=== PATIENT | male | born 1985 | race African-American/Black ===

== ENCOUNTER 2016-10-19 20:11 | Emergency (ER) | payer SELFPAY ==
[~2016-10-19] VITALS: Ht 167.6 cm; Wt 79.1 kg
[2016-10-19 20:13] VITALS: BP 120/67; PULSE 92; TEMP 98.1
== END 2016-10-19 22:02 | disposition home or self-care (01) ==
LOC: COL.ER 20:11
DX: S60.441A External constriction of left index finger, initial encounter (principal); W49.04XA Ring or other jewelry causing external constriction, initial encounter; F17.210 Nicotine dependence, cigarettes, uncomplicated

== ENCOUNTER 2017-01-15 10:53 | Emergency (ER) | payer SELFPAY ==
[~2017-01-15] VITALS: Ht 167.6 cm; Wt 78.6 kg
[2017-01-15 10:58] VITALS: BP 122/64; TEMP 98.9
[2017-01-15] MEDS ORDERED: ADVIL200 MG PO (11:19)
[2017-01-15 12:16] VITALS: PULSE 88
== END 2017-01-15 12:17 | disposition home or self-care (01) ==
LOC: COL.ER 10:53
DX: S29.011A Strain of muscle and tendon of front wall of thorax, initial encounter (principal); F12.90 Cannabis use, unspecified, uncomplicated; F17.210 Nicotine dependence, cigarettes, uncomplicated; X50.0XXA Overexertion from strenuous movement or load, initial encounter
CPT/HCPCS: J2360

== ENCOUNTER 2017-04-01 11:16 | Emergency (ER) | payer SELFPAY ==
[~2017-04-01] VITALS: Ht 167.6 cm; Wt 72.7 kg
[~2017-04-01 11:16] MED LIST: ADVIL200 MG PO
[2017-04-01 11:17] VITALS: BP 140/87; PULSE 102; TEMP 98.1
[2017-04-01] MEDS ORDERED: WELLBUTRIN 75MG75 MG PO (11:59)
[2017-04-04] MEDS ORDERED: AMOXICILLIN 50500 MG PO (17:33)
== END 2017-04-01 13:08 | disposition home or self-care (01) ==
LOC: COL.ER 11:16
DX: J02.9 Acute pharyngitis, unspecified (principal); H92.02 Otalgia, left ear; F17.210 Nicotine dependence, cigarettes, uncomplicated

== ENCOUNTER 2017-04-18 12:58 | Emergency (ER) | payer SELFPAY ==
[~2017-04-18] VITALS: Ht 167.6 cm; Wt 68.2 kg
[~2017-04-18 12:58] MED LIST changes: +AMOXICILLIN 50500 MG PO; +WELLBUTRIN 75MG75 MG PO
[2017-04-18 13:02] VITALS: BP 119/92; TEMP 98.6
[2017-04-18 13:31] VITALS: PULSE 94
== END 2017-04-18 13:33 | disposition home or self-care (01) ==
LOC: COL.ER 12:58
DX: M79.1 Myalgia (principal); X50.3XXA Overexertion from repetitive movements, initial encounter

== ENCOUNTER 2017-05-07 11:57 | Emergency (ER) | payer SELFPAY ==
[~2017-05-07] VITALS: Ht 167.6 cm; Wt 68.2 kg
[2017-05-07 12:00] VITALS: BP 113/79; TEMP 97.7
[2017-05-07] MEDS ORDERED: MOTRIN 800800 MG/TAB PO (12:28)
[2017-05-07 13:07] VITALS: PULSE 81
== END 2017-05-07 13:08 | disposition home or self-care (01) ==
LOC: COL.ER 11:57
DX: S90.122A Contusion of left lesser toe(s) without damage to nail, initial encounter (principal); W22.03XA Walked into furniture, initial encounter

== ENCOUNTER 2017-08-16 18:44 | Emergency (ER) | payer SELFPAY ==
[~2017-08-16] VITALS: Ht 167.6 cm; Wt 70.5 kg
[~2017-08-16 18:44] MED LIST changes: +MOTRIN 800800 MG/TAB PO
[2017-08-16 18:46] VITALS: BP 136/68; TEMP 97.1
[2017-08-16] MEDS ORDERED: FLEXERIL 1010 MG/TAB PO (22:15)
[2017-08-16 22:28] VITALS: PULSE 87
== END 2017-08-16 22:30 | disposition home or self-care (01) ==
LOC: COL.ER 18:44
DX: S16.1XXA Strain of muscle, fascia and tendon at neck level, initial encounter (principal); S29.012A Strain of muscle and tendon of back wall of thorax, initial encounter; V49.50XA Passenger injured in collision with unspecified motor vehicles in traffic accident, initial encounter
CPT/HCPCS: J1885

== ENCOUNTER 2017-09-10 18:28 | Emergency (ER) | payer SELFPAY ==
[~2017-09-10] VITALS: Ht 167.6 cm; Wt 70.5 kg
[~2017-09-10 18:28] MED LIST changes: +FLEXERIL 1010 MG/TAB PO
[2017-09-10 18:35] VITALS: BP 180/106; PULSE 95; TEMP 98.7
[2017-09-10] MEDS ORDERED: LEVAQUIN 5500 MG/TA1 PO (20:11)
== END 2017-09-10 20:41 | disposition home or self-care (01) ==
LOC: COL.ER 18:28
DX: S91.331A Puncture wound without foreign body, right foot, initial encounter (principal); W22.8XXA Striking against or struck by other objects, initial encounter; Y92.009 Unspecified place in unspecified non-institutional (private) residence as the place of occurrence of the external cause
CPT/HCPCS: J1885

== ENCOUNTER 2017-11-29 22:05 | Emergency (ER) | payer SELFPAY ==
[~2017-11-29] VITALS: Ht 167.6 cm; Wt 59.1 kg
[~2017-11-29 22:05] MED LIST changes: +LEVAQUIN 5500 MG/TA1 PO
[2017-11-29 22:13] VITALS: TEMP 98.8
[2017-11-30] MEDS ORDERED: NORCO 325 MG-51 TAB PO (00:13)
[2017-11-30] MEDS ORDERED: FLEXERIL 1010 MG/TAB PO (00:13)
[2017-11-30 00:30] VITALS: BP 115/99; PULSE 90
== END 2017-11-30 00:30 | disposition home or self-care (01) ==
LOC: COL.ER 22:05
DX: M54.9 Dorsalgia, unspecified (principal); W19.XXXA Unspecified fall, initial encounter

== ENCOUNTER 2018-12-13 20:05 | Emergency (ER) | payer SELFPAY ==
[~2018-12-13] VITALS: Ht 167.6 cm; Wt 70.5 kg
[~2018-12-13 20:05] MED LIST changes: +NORCO 325 MG-51 TAB PO
[2018-12-13 20:09] VITALS: BP 138/76; PULSE 95; TEMP 97
== END 2018-12-13 20:48 | disposition left against medical advice (07) ==
LOC: COL.ER 20:05
DX: J00 Acute nasopharyngitis [common cold] (principal)

== ENCOUNTER 2018-12-13 23:30 | Emergency (ER) | payer SELFPAY ==
[~2018-12-13] VITALS: Ht 167.6 cm; Wt 75.0 kg
[2018-12-13 23:38] VITALS: BP 134/74; PULSE 92; TEMP 97.1
== END 2018-12-14 00:11 | disposition left against medical advice (07) ==
LOC: COL.ER 23:30
DX: J02.9 Acute pharyngitis, unspecified (principal)

== ENCOUNTER 2019-08-11 18:20 | Emergency (ER) | payer SELFPAY ==
[2019-08-11 18:27] VITALS: BP 129/88; TEMP 97.3
[2019-08-11 19:47] VITALS: PULSE 95
== END 2019-08-11 19:47 | disposition home or self-care (01) ==
LOC: COL.ER 18:20
DX: S20.211A Contusion of right front wall of thorax, initial encounter (principal); Y04.0XXA Assault by unarmed brawl or fight, initial encounter
CPT/HCPCS: J1885

== ENCOUNTER 2019-08-14 12:03 | Emergency (ER) | payer SELFPAY ==
[~2019-08-14] VITALS: Ht 167.6 cm; Wt 77.3 kg
[2019-08-14 12:25] VITALS: TEMP 98.4
[2019-08-14] MEDS ORDERED: LIDODERM 5% PATC1 EA TP (13:03)
[2019-08-14] MEDS ORDERED: NORCO 325 MG-51 TAB PO (13:03)
[2019-08-14 13:49] VITALS: BP 110/70; PULSE 77
[2019-08-14] MEDS ORDERED: ZITHROMAX 250M250 MG PO (14:36)
== END 2019-08-14 13:39 | disposition home or self-care (01) ==
LOC: COL.ER 12:03
DX: S29.011A Strain of muscle and tendon of front wall of thorax, initial encounter (principal); Y04.0XXA Assault by unarmed brawl or fight, initial encounter; F12.90 Cannabis use, unspecified, uncomplicated; F17.210 Nicotine dependence, cigarettes, uncomplicated
CPT/HCPCS: J0696; J1885

== ENCOUNTER 2020-07-02 23:13 | Emergency (ER) | payer SELFPAY ==
[~2020-07-02] VITALS: Ht 167.6 cm; Wt 80.5 kg
[~2020-07-02 23:13] MED LIST changes: +LIDODERM 5% PATC1 EA TP; +ZITHROMAX 250M250 MG PO
[2020-07-02] MEDS ORDERED: PEN-VEE K500 MG PO (23:32)
[2020-07-02 23:40] VITALS: BP 120/75; PULSE 82; TEMP 98.4
== END 2020-07-02 23:40 | disposition home or self-care (01) ==
LOC: COL.ER 23:13
DX: S02.5XXA Fracture of tooth (traumatic), initial encounter for closed fracture (principal); F17.210 Nicotine dependence, cigarettes, uncomplicated; X58.XXXA Exposure to other specified factors, initial encounter

== ENCOUNTER 2021-01-13 11:02 | Emergency (ER) | payer SELFPAY ==
[~2021-01-13] VITALS: Ht 167.6 cm; Wt 68.2 kg
[~2021-01-13 11:02] MED LIST changes: +PEN-VEE K500 MG PO
[2021-01-13 11:18] VITALS: BP 123/74; PULSE 83; TEMP 98.4
[2021-01-13 11:47] LABS: COLLECTION METHOD CLEAN CATCH
[2021-01-13 11:56] LABS: PH 7 (5-8); SQUAMOUS EPITHELIAL None Seen /hpf (0-10); URINE APPEARANCE Clear (CLEAR/HAZY); URINE BACTERIA None Seen (NONE SEEN); URINE BILIRUBIN Negative (NEGATIVE); URINE BLOOD Negative (NEGATIVE); URINE COLOR Straw (YELLOW); URINE GLUCOSE Negative (NEGATIVE); URINE KETONE Negative (NEGATIVE); URINE LEUKOCYTE ESTERASE Negative (NEGATIVE); URINE NITRATE Negative (NEGATIVE); URINE PROTEIN(semi-quant) Negative (NEGATIVE); URINE RBC 0-2 /hpf (0-2); URINE UROBILINOGEN Negative (NEGATIVE)
== END 2021-01-13 13:23 | disposition home or self-care (01) ==
LOC: COL.ER 11:02
PROVIDERS: Emergency Medicine
DX: Z71.1 Person with feared health complaint in whom no diagnosis is made (principal); F17.200 Nicotine dependence, unspecified, uncomplicated